=== PATIENT | male | born 1950 | race African-American/Black ===

== ENCOUNTER 2016-11-03 00:14 | Emergency (ER) | payer MEDICARE, OTHER ==
[~2016-11-03] VITALS: Ht 170.2 cm; Wt 97.5 kg
[~2016-11-03 00:14] MED LIST: BIMA2.5D EACHEYE; BUDE10.2 IH; CETI10TA22 PO; CRESTOR5 MG PO; DICL100G18 TP; FEBU40TA PO; FLUT16SP2 NS; FURO-68 PO; LOSA25TA4 PO; MONT10TA6 PO; TAMS0.4C97 PO; TIMO5DRO5 EACHEYE
--- NOTE | 2016-11-03 00:17 | PHYS DOC ---
Past Medical History Past Medical History: High Cholesterol, Hypertension Additional Past Medical Histor: gout Past Surgical History: Other Additional Past Surgical Histo: arthroscope rt knee Alcohol Use: None Drug Use: None Adult General Chief Complaint Chief Complaint: URINARY RETENTION HPI HPI Patient is a 66 year old -Malagasy male who presents with dysuria and frequency. He states his symptoms started approximately noon and sometimes is been having to urinate 5 or 6 times an hour. He also sees blood in his urine. He denies any fevers chills nausea or vomiting. He does have BPH he states he's had that for the last 15 or 20 years. He does see a urologist in [place] usually keeps office hours on Sunday. Review of Systems Review of Systems Constitutional: Denies fever or chills [] Eyes: Denies change in visual acuity, redness, or eye pain [] HENT: Denies nasal congestion or sore throat [] Respiratory: Denies cough or shortness of breath [] Cardiovascular: No additional information not addressed in HPI [] GI: Denies abdominal pain, nausea, vomiting, bloody stools or diarrhea [] : Positive for dysuria and hematuria. Musculoskeletal: Denies back pain or joint pain [] Integument: Denies rash or skin lesions [] Neurologic: Denies headache, focal weakness or sensory changes [] Endocrine: Denies polyuria or polydipsia [] Current Medications Current Medications Current Medications Medications (Trade) Dose Ordered Sig/Gus Start Time Stop Time Status Last Admin Dose Admin Ceftriaxone Sodium 50 ml @ 100 mls/hr 1X ONCE 11/03/16 03:15 11/03/16 03:44 Lidocaine HCl (Glydo (Lidocaine) Jelly) 1 pooja 1X ONCE 11/03/16 03:15 11/03/16 03:16 Allergies Allergies Allergies Coded Allergies Type Severity Reaction Last Updated Verified oxycodone Allergy Intermediate hives 08/22/13 Yes Physical Exam Physical Exam Constitutional: Well developed, well nourished, no acute distress, non-toxic appearance. [] HENT: Normocephalic, atraumatic, bilateral external ears normal, oropharynx moist, no oral exudates, nose normal. [] Eyes: PERRLA, EOMI, conjunctiva normal, no discharge. [] Neck: Normal range of motion, no tenderness, supple, no stridor. [] Cardiovascular:Heart rate regular rhythm, no murmur [] Lungs & Thorax: Bilateral breath sounds clear to auscultation [] Abdomen: Bowel sounds normal, soft, no tenderness, no masses, no pulsatile masses. [] Skin: Warm, dry, no erythema, no rash. [] Back: No tenderness, no CVA tenderness. [] Extremities: No tenderness, no cyanosis, no clubbing, ROM intact, no edema. [] Neurologic: Alert and oriented X 3, normal motor function, normal sensory function, no focal deficits noted. [] Psychologic: Affect normal, judgement normal, mood normal. [] Current Patient Data Vital Signs Vital Signs Date Time Temp Pulse Resp B/P (MAP) Pulse Ox O2 Delivery O2 Flow Rate FiO2 11/03/16 01:30 99.0 69 18 130/82 (98) 100 Room Air 99.0 Lab Values Laboratory Tests Test 11/03/16 01:25 11/03/16 02:00 Urine Collection Type Unknown Urine Color Yellow Urine Clarity Cloudy Urine pH 6.0 Urine Specific [place] 1.020 Urine Protein 100 mg/dL (NEG-TRACE) Urine Glucose (UA) Negative mg/dL (NEG) Urine Ketones (Stick) Negative mg/dL (NEG) Urine Blood Large (NEG) Urine Nitrite Negative (NEG) Urine Bilirubin Negative (NEG) Urine Urobilinogen Dipstick 1.0 mg/dL (0.2 mg/dL) Urine Leukocyte Esterase Moderate (NEG) Urine RBC Tntc /HPF (0-2) Urine WBC 11-20 /HPF (0-4) Urine Squamous Epithelial Cells Occ /LPF Urine Bacteria 0 /HPF (0-FEW) Urine Mucus Mod /LPF White Blood Count 6.3 x10^3/uL (4.0-11.0) Red Blood Count 4.07 x10^6/uL (4.30-5.70) L Hemoglobin 12.8 g/dL (13.0-17.5) L Hematocrit 37.6 % (39.0-53.0) L Mean Corpuscular Volume 92 fL (79-100) Mean Corpuscular Hemoglobin 31 pg (25-35) Mean Corpuscular Hemoglobin Concent 34 g/dL (31-37) Red Cell Distribution Width 12.8 % (11.5-14.5) Platelet Count 144 x10^3/uL (140-400) Neutrophils (%) (Auto) 44 % (31-73) Lymphocytes (%) (Auto) 42 % (24-48) Monocytes (%) (Auto) 12 % (0-9) H Eosinophils (%) (Auto) 2 % (0-3) Basophils (%) (Auto) 1 % (0-3) Neutrophils # (Auto) 2.8 x10^3uL (1.8-7.7) Lymphocytes # (Auto) 2.6 x10^3/uL (1.0-4.8) Monocytes # (Auto) 0.8 x10^3/uL (0.0-1.1) Eosinophils # (Auto) 0.1 x10^3/uL (0.0-0.7) Basophils # (Auto) 0.0 x10^3/uL (0.0-0.2) Sodium Level 139 mmol/L (136-145) Potassium Level 4.0 mmol/L (3.5-5.1) Chloride Level 105 mmol/L (98-107) Carbon Dioxide Level 28 mmol/L (21-32) Anion Gap 6 (6-14) Blood Urea Nitrogen 17 mg/dL (8-26) Creatinine 1.4 mg/dL (0.7-1.3) H Estimated GFR (Cockcroft-Gault) 61.2 Glucose Level 108 mg/dL (70-99) H Calcium Level 9.5 mg/dL (8.5-10.1) Total Bilirubin 0.4 mg/dL (0.2-1.0) Direct Bilirubin 0.1 mg/dL (0.0-0.2) Aspartate Amino Transferase (AST) 22 U/L (15-37) Alanine Aminotransferase (ALT) 27 U/L (16-63) Alkaline Phosphatase 66 U/L (46-116) Creatine Kinase 139 U/L (39-308) Creatine Kinase MB (Mass) 0.8 ng/mL (0.0-3.6) Creatine Kinase MB Relative Index 0.6 % (0-4) Total Protein 6.4 g/dL (6.4-8.2) Albumin 3.2 g/dL (3.4-5.0) L Lipase 176 U/L (73-393) Laboratory Tests 11/03/16 02:00 Laboratory Tests 11/03/16 02:00 EKG EKG [] Radiology/Procedures Radiology/Procedures [] Impressions: Urinary retention Hematuria Course & Med Decision Making Course & Med Decision Making Pertinent Labs and Imaging studies reviewed. (See chart for details) He has hematuria without any bacteriuria. Bladder scan is only shown around 80 ML's even though he urinated what he states is a lot and then repeat bladder scan showed again 80 fuentes. Mcdonald catheter was placed and the patient is being discharged home to follow-up with his urologist. Return precautions given. He is agreeable plan being discharged in stable condition he was given 1 g of Rocephin for leuk esterase positive urine.. Dragon Disclaimer Dragon Disclaimer This electronic medical record was generated, in whole or in part, using a voice recognition dictation system. Departure Departure Impression: Primary Impression: Urinary retention Disposition: HOME, SELF-CARE Condition: STABLE Referrals: ASIF JHA MD (PCP) Patient Instructions: Urinary Retention, Acute, Male Additional Instructions: You were seen for urinary frequency and I believe your bladder is not emptying itself completely. We placed a Mcdonald catheter in her bladder to help it drain. If you have any irritation take Fleming which is a narcotic pain medicines as instructed to for pain or discomfort. Please don't drive or taking this medicine or drink alcohol as it can impair judgment and make you sleepy. You will need to call your urologist in follow-up with him on Sunday. Your being discharged home. If you develop any fevers, confusion, abdominal pain, or other concerns please return back to emergency department for further evaluation and treatment. You can also follow up with her primary care physician. Scripts Hydrocodone/Apap 5-325 (NORCO 5-325 TABLET) 1 Each Tablet 1 TAB PO PRN Q6HRS Y for PAIN, #12 TAB 0 Refills Prov: MARY MEJIA MD 11/03/16 MARY MEJIA MD Nov 03, 2016 00:17
[2016-11-03 01:30] VITALS: BP 130/82
[2016-11-03 01:35] LABS: BILIRUBIN,URINE NEGATIVE (NEG); GLUCOSE,URINE NEGATIVE (NEG); NITRITE,URINE NEGATIVE (NEG); PROTEIN,URINE 100 mg/dL (NEG-TRACE)
[2016-11-03 01:43] LABS: BACTERIA,URINE 0 /HPF (0-FEW); RBC,URINE TNTC /HPF (0-2); SQUAMOUS EPITHELIAL CELL,UR OCC /LPF
[2016-11-03 02:19] LABS: BASO % 1 % (0-3); EOS % 2 % (0-3); HEMATOCRIT 37.6 % (39.0-53.0); HEMOGLOBIN 12.8 g/dL (13.0-17.5); LYMPH # 2.6 x10^3/uL (1.0-4.8); LYMPH % 42 % (24-48); MEAN CORPUSCULAR HEMOGLOBIN 31 pg (25-35); MEAN CORPUSCULAR HGB CONC 34 g/dL (31-37); MEAN CORPUSCULAR VOLUME 92 fL (79-100); MONO % 12 % (0-9); NEUT % 44 % (31-73); PLATELET COUNT 144 x10^3/uL (140-400); RED BLOOD COUNT 4.07 x10^6/uL (4.30-5.70); RED CELL DISTRIBUTION WIDTH 12.8 % (11.5-14.5); WHITE BLOOD COUNT 6.3 x10^3/uL (4.0-11.0)
[2016-11-03 02:30] LABS: CALCIUM 9.5 mg/dL (8.5-10.1); CREATININE 1.4 mg/dL (0.7-1.3); GFR 61.2
[2016-11-03 02:36] LABS: ALBUMIN 3.2 g/dL (3.4-5.0); DIRECT BILIRUBIN 0.1 mg/dL (0.0-0.2); TOTAL BILIRUBIN 0.4 mg/dL (0.2-1.0); TOTAL PROTEIN 6.4 g/dL (6.4-8.2)
[2016-11-03] MEDS ORDERED: LIDOCAINE 2% JELLY 6ML IN APPLICATOR. ONE (02:43)
[2016-11-03 02:48] LABS: CKMB MASS 0.8 ng/mL (0.0-3.6)
[2016-11-03] MEDS ORDERED: HYDR-971 PO (03:13)
[2016-11-03] MEDS ORDERED: LIDOCAINE 2% JELLY 6ML IN APPLICATOR. MM ONE (03:15)
== END 2016-11-03 03:45 | disposition home or self-care (01) ==
LOC: ER 00:14
DX: R33.9 Retention of urine, unspecified (principal); R31.9 Hematuria, unspecified; I10 Essential (primary) hypertension; E78.00 Pure hypercholesterolemia, unspecified; Z88.5 Allergy status to narcotic agent
CPT/HCPCS: 36415; 51702; 80048; 80076; 81001; 82553; 83690; 85025; 87086; 96365; 99285; J0690

== ENCOUNTER 2016-11-07 21:21 | Emergency (ER) | payer OTHER, MEDICARE ==
[~2016-11-07] VITALS: Ht 170.2 cm; Wt 97.5 kg
[~2016-11-07 21:21] MED LIST changes: +HYDR-971 PO
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
[2016-11-07] MEDS ORDERED: MORPHINE SULFATE 4 MG/ML DISP.SYRIN. IM ONE ×2 (22:30→23:45)
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
[2016-11-07] MEDS ORDERED: HYDR-971 PO (23:51)
[2016-11-08] MEDS ORDERED: HYDROcodone/APAP 7.5/325MG 1 TAB TABLET PO ONE
[2016-11-08 00:10] VITALS: BP 117/73
== END 2016-11-08 00:26 | disposition home or self-care (01) ==
LOC: ER 21:21
DX: S16.1XXA Strain of muscle, fascia and tendon at neck level, initial encounter (principal); S39.012A Strain of muscle, fascia and tendon of lower back, initial encounter; S29.012A Strain of muscle and tendon of back wall of thorax, initial encounter; M25.561 Pain in right knee; M25.571 Pain in right ankle and joints of right foot; J45.909 Unspecified asthma, uncomplicated; N40.0 Benign prostatic hyperplasia without lower urinary tract symptoms; E78.00 Pure hypercholesterolemia, unspecified; I12.9 Hypertensive chronic kidney disease with stage 1 through stage 4 chronic kidney disease, or unspecified chronic kidney disease; N18.9 Chronic kidney disease, unspecified; Z88.5 Allergy status to narcotic agent; V43.52XA Car driver injured in collision with other type car in traffic accident, initial encounter; Y93.89 Activity, other specified; Y99.8 Other external cause status; Y92.89 Other specified places as the place of occurrence of the external cause
CPT/HCPCS: 70450; 72125; 72128; 72131; 96372; 99284; J2270

== ENCOUNTER → 2016-11-15 | Outpatient (CLI) | payer MEDICARE ==
[2016-11-08 00:10] VITALS: BP 117/73
[~2016-11-15] MED LIST changes: +CONTRAST GIVEN MC PRN; +IOHEXOL 300 MG/ML 75 ML VIAL IV ONE; +IOHEXOL 300 MG/ML 75 ML VIAL ONE
--- NOTE | 2016-11-15 10:57 | RAD ---
Indication hematuria. CT urogram was performed. Initially noncontrast images were obtained through the abdomen and pelvis. This was followed by portal venous phase imaging through the kidneys and finally delayed images through the abdomen and pelvis. Approximately 75 cc of Omnipaque 300 was administered. No prior imaging of the abdomen or pelvis is available On the initial noncontrast images note is made of a horseshoe configuration of the kidneys. There is a 7 to 8 mm calculus in the left renal pelvis. Additional calculi are seen involving the left kidney the largest measuring approximately 3 mm. There is very minimal prominence of the left renal pelvis. Certainly marked hydronephrosis is not seen. There is no hydroureter. There are bladder calculi, 2, the largest measuring approximately 13 mm. The lung bases are clear. There is a small periumbilical hernia appearing uncomplicated.. It contains only fat. The liver and spleen appear unremarkable. The gallbladder is largely contracted but grossly normal. No pancreatic abnormality is seen. The adrenal glands appear normal. Acute finding in the abdomen is not seen. No acute finding is seen in the pelvis. Mild diverticulosis is noted associated with the large bowel. There are degenerative changes in the lumbar spine predominantly centered at L4-5. IMPRESSION: No acute finding seen in the abdomen or pelvis. Horseshoe configuration of the kidneys. 7 to 8 mm calculus in the left renal pelvis. Additional left renal calculi are noted. Bladder calculi. PQRS Compliance Statement: One or more of the following individualized dose reduction techniques were utilized for this examination: 1. Automated exposure control 2. Adjustment of the mA and/or kV according to patient size 3. Use of iterative reconstruction technique
== END | disposition home or self-care (01) ==
LOC: CT 08:45
PROVIDERS: ATTEND Urology
DX: N20.0 Calculus of kidney (principal); N21.0 Calculus in bladder; I12.9 Hypertensive chronic kidney disease with stage 1 through stage 4 chronic kidney disease, or unspecified chronic kidney disease; N18.9 Chronic kidney disease, unspecified; Z87.891 Personal history of nicotine dependence
CPT/HCPCS: 74178; Q9967

== ENCOUNTER 2016-12-08 20:53 | Emergency (ER) | payer MEDICARE ==
[~2016-12-08] VITALS: Ht 170.2 cm; Wt 94.8 kg
[~2016-12-08 20:53] MED LIST changes: -CONTRAST GIVEN MC PRN; -IOHEXOL 300 MG/ML 75 ML VIAL IV ONE; -IOHEXOL 300 MG/ML 75 ML VIAL ONE
[2016-12-08 22:23] LABS: BILIRUBIN,URINE NEGATIVE (NEG); GLUCOSE,URINE NEGATIVE (NEG); NITRITE,URINE NEGATIVE (NEG); PROTEIN,URINE 100 mg/dL (NEG-TRACE); UROBILINOGEN,URINE 0.2 mg/dL (0.2 mg/dL)
[2016-12-08 22:29] LABS: BACTERIA,URINE 0 /HPF (0-FEW); RBC,URINE >40 /HPF (0-2)
--- NOTE | 2016-12-08 23:01 | PHYS DOC ---
Past Medical History Past Medical History: Asthma, High Cholesterol, Hypertension, Other Additional Past Medical Histor: RENAL INSUFFICIENCY; ENLARGED PROSTATE Past Surgical History: Other Additional Past Surgical Histo: arthroscope rt knee Alcohol Use: Occasionally Drug Use: None Adult General Chief Complaint Chief Complaint: URINE CATHETER PROBLEM HPI HPI Patient is a 66 year old male who presents with banuelos catheter problem. The patient states he underwent surgery for "gallstones & kidney stones" by Dr. Carias at [facility] on 12/04. Today he states he is urinating around his banuelos catheter with decreased output to the catheter, & has suprapubic discomfort. Denies fevers/chills, nausea, vomiting, diarrhea, constipation, hematuria, flank pain. Has follow up appointment in 4 days. Review of Systems Review of Systems Constitutional: Denies fever or chills HENT: Denies nasal congestion or sore throat Respiratory: Denies cough or shortness of breath Cardiovascular: Denies chest pain or edema GI: Denies abdominal pain, nausea, vomiting, or diarrhea : Reports banuelos catheter problem Musculoskeletal: Denies back pain or joint pain Integument: Denies rash Neurologic: Denies headache Allergies Allergies Allergies Coded Allergies Type Severity Reaction Last Updated Verified oxycodone Allergy Intermediate hives 08/22/13 Yes Physical Exam Physical Exam Constitutional: obese, no acute distress, non-toxic appearance. HENT: Normocephalic, atraumatic, bilateral external ears normal, oropharynx moist, nose normal. Eyes: conjunctiva normal, no discharge. Neck: supple, no stridor. Cardiovascular: RRR, no murmurs, no edema. Lungs & Thorax: LCTAB, no wheezing, no respiratory distress. Abdomen: soft, nontender, nondistended. no rebound/guarding, no masses or pulsatile masses. no abdominal incisions or bandages. : banuelos catheter in place with minimal dark yellow output. Skin: Warm, dry, no erythema, no rash. Back: No CVA tenderness. Extremities: No tenderness, no edema. Neurologic: Alert and oriented X 3, no focal deficits noted. Psychologic: Affect normal, judgement normal, mood normal. Current Patient Data Vital Signs Vital Signs Date Time Temp Pulse Resp B/P (MAP) Pulse Ox O2 Delivery O2 Flow Rate FiO2 12/08/16 21:01 98.3 91 24 184/106 (132) 99 Room Air 98.3 Lab Values Laboratory Tests Test 12/08/16 22:15 Urine Collection Type Unknown Urine Color Yellow Urine Clarity Clear Urine pH 7.0 Urine Specific [place] 1.010 Urine Protein 100 mg/dL (NEG-TRACE) Urine Glucose (UA) Negative mg/dL (NEG) Urine Ketones (Stick) Negative mg/dL (NEG) Urine Blood Large (NEG) Urine Nitrite Negative (NEG) Urine Bilirubin Negative (NEG) Urine Urobilinogen Dipstick 0.2 mg/dL (0.2 mg/dL) Urine Leukocyte Esterase Large (NEG) Urine RBC >40 /HPF (0-2) Urine WBC 5-10 /HPF (0-4) Urine Bacteria 0 /HPF (0-FEW) EKG EKG [] Radiology/Procedures Radiology/Procedures [] Course & Med Decision Making Course & Med Decision Making Pertinent Labs and Imaging studies reviewed. (See chart for details) The patient presents with banuelos catheter problem. His surgery was probably just for he requested to have it removed. RN removed catheter & he was able to spontaneously void >450 mL of yellow urine. Bladder scan showed no postvoid residual. UA shows blood. Contacted his urologist Dr. Carias who advises no need to replace catheter. patient instructed to follow postop instructions including continue antibiotics. Follow up as scheduled in the clinic with Dr. Carias. Come back for high fever, severe pain, uncontrolled vomiting, inability to urinate, any otherwise worsening condition. Discharged home in stable condition. [] Dragon Disclaimer Dragon Disclaimer This electronic medical record was generated, in whole or in part, using a voice recognition dictation system. Departure Departure Impression: Primary Impression: Banuelos catheter problem Disposition: 01 HOME, SELF-CARE Condition: STABLE Referrals: ASIF JHA MD (PCP) Patient Instructions: Urinary Retention, Acute, Male, [id number] Additional Instructions: You were seen in the emergency department today for problems with your Banuelos catheter. It was removed here & you were able to urinate. Please continue all follow-up instructions from your surgeon. Keep follow-up appointment this week with Dr. Carias in the urology clinic. Return the emergency department for high fever, severe pain, uncontrolled vomiting, inability to urinate, any otherwise worsening condition. JUAN MANNING MD Dec 08, 2016 23:01
[2016-12-08 23:30] VITALS: BP 142/75
== END 2016-12-08 23:35 | disposition home or self-care (01) ==
LOC: ER 20:53
DX: T83.098A Other mechanical complication of other urinary catheter, initial encounter (principal); E78.00 Pure hypercholesterolemia, unspecified; J45.909 Unspecified asthma, uncomplicated; I10 Essential (primary) hypertension; N40.0 Benign prostatic hyperplasia without lower urinary tract symptoms; Z87.442 Personal history of urinary calculi; Z88.5 Allergy status to narcotic agent; Y84.6 Urinary catheterization as the cause of abnormal reaction of the patient, or of later complication, without mention of misadventure at the time of the procedure; Y92.89 Other specified places as the place of occurrence of the external cause
CPT/HCPCS: 81001; 87086; 99284

== ENCOUNTER → 2016-12-11 | Outpatient (CLI) | payer MEDICARE ==
[2016-12-08 23:30] VITALS: BP 142/75
--- NOTE | 2016-12-11 11:50 | KCIC ---
CT Abdomen and Pelvis without contrast History: Left renal stone, stent removal with stent placement one week ago Technique: Noncontrast CT imaging was performed of the abdomen and pelvis. Multiplanar images are reviewed. Exposure: One or more of the following individualized dose reduction techniques were utilized for this examination: 1. Automated exposure control 2. Adjustment of the mA and/or kV according to patient size 3. Use of iterative reconstruction technique. 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 There is left ureteral stent which appears adequately positioned. There is a small 0.4 cm calculus near the stent posteriorly of the calyceal margin, approximately 7 other calculi near the margin on the left, the largest 0.7 cm. No calculus is seen adjacent to the ureteral course of the stent. No right ureteral calculus is identified. There is mild stranding change about the left ureter. There is no significant hydronephrosis. Accurate evaluation of abdominal visceral organs is limited without intravenous contrast. Liver is small. There is no obvious focal abnormality of the spleen or pancreas. Gallbladder is present without obvious intraluminal abnormality. There is no adrenal nodularity. Accurate evaluation of bowel is limited without oral contrast. There is moderate to severe diverticulosis throughout most of the colon greatest of the descending and proximal to mid sigmoid colon without evidence of diverticulitis. Normal appendix is visualized. There is fat-containing umbilical hernia, no bowel, neck on the order of 2.4 cm transverse. There is multilevel fairly advanced degenerative disc disease lumbar spine greatest L4-5 and L5-S1, grade 1 anterior spondylolisthesis L4-5 and L5-S1. There is moderate to severe narrowing of the right L4-5 neural foramen, to lesser degree on the left. There is also probable moderate narrowing of the right L5-S1 neural foramen. There is multilevel lumbar facet degenerative change. Prostate gland slightly indents the base of urinary bladder. Impression: 1. 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 There is a left ureteral stent which appears adequately positioned, calculi of the left moiety of the horseshoe kidney. 2. There is colonic diverticulosis without evidence of diverticulitis. 3. There is fat-containing umbilical hernia. 4. Liver is small. Electronically signed by: Dino Saleh MD (12/11/2016 11:47 AM) [facility]
== END | disposition home or self-care (01) ==
LOC: KCIC CT 10:40
PROVIDERS: ATTEND Urology
DX: N20.2 Calculus of kidney with calculus of ureter (principal); K57.30 Diverticulosis of large intestine without perforation or abscess without bleeding; K42.9 Umbilical hernia without obstruction or gangrene; M51.37 Other intervertebral disc degeneration, lumbosacral region; Z87.442 Personal history of urinary calculi
CPT/HCPCS: 74176

== ENCOUNTER → 2020-04-14 | Outpatient (CLI) | payer MEDICARE ==
[2018-02-17 12:17] VITALS: BP 143/70
[~2020-04-14] MED LIST changes: +ATOR20TA58 PO; -CETI10TA22 PO; +CETI10TA74 PO; -DICL100G18 TP; +DICL100G54 TP; +HYDR-3164 PO; -HYDR-971 PO; +LOSA-73 PO; -LOSA25TA4 PO; +LOSA25TA54 PO; +MONT10TA49 PO; -MONT10TA6 PO; +TIMO10DR5 EACHEYE; +ZOLPIDEM 5 MG TABLET. PO ONE
--- NOTE | 2020-04-15 09:15 | SLEEP ---
DATE OF STUDY: 04/14/2020 SLEEP STUDY ATTENDING PHYSICIAN: Trent Stevenson MD REFERRING PHYSICIAN: Dr. Edinson Amanda. The patient is a 69-year-old who weighs 210 pounds with a BMI of 36. The patient's [place] score was 10. The patient underwent split night study performed at [facility]. During the night study, the patient spent 407 minutes in bed and slept for 338 minutes with a sleep efficiency of 83%. Sleep latency was 46 minutes with a REM latency of 78 minutes. Sleep architecture showed normal stage 1 and stage 2 sleep and absent slow wave sleep and increased REM sleep, which was 34% of the total sleep time. During the initial diagnostic portion of the study, the patient slept for 81 minutes. During that time, the patient had 35 hypopneas. One obstructive apnea, no mixed or central apneas. The patient's AHI was 27 per hour with a supine AHI of 32 per hour and a REM AHI of 69 per hour. EKG monitoring revealed an average heart rate of 67 beats per minute, no sustained arrhythmias observed. Nocturnal oximetry study revealed an average oxygen saturation of 96% with the lowest of 71%. 3% of time oxygen saturation remained between 80% and 89%. PLMS were seen at index of 16 per hour, but only 1 per hour caused EEG arousals. The patient met the criteria for CPAP initiation. It was started at 5 cm water and titrated up to 9 cm water. At the final pressure, the patient slept for 216 minutes. The patient is supine as well as REM sleep. The patient's AHI was reduced to 3 per hour and oxygen saturation remained above 93%. The patient used medium size nasal pillows. IMPRESSION: 1. Moderate obstructive sleep apnea with worsening during REM and supine sleep; total AHI of 27 per hour, supine AHI 32 per hour and a REM AHI of 69 per hour. 2. No clinically significant nocturnal hypoxia. 3. Mild PLMS. RECOMMENDATIONS: 1. CPAP at 9 cm water completely eliminated the patient's sleep apnea and should be used on a nightly basis. 2. Follow up in 4-6 weeks to assess compliance with CPAP and to document clinical improvement. 3. Weight loss is advised. 4. Avoid PATHOLOGICAL TECHNICIAN depressants. 5. Cautioned regarding driving until symptoms of sleep apnea resolve with the use of CPAP. 6. The patient used medium size nasal pillows. EDU FERRARI MD DR: ANNY/eleazar JOB#: [id number] / [id number]
== END ==
LOC: SLPLAB 19:11
PROVIDERS: ATTEND Internal Medicine Critical Care Medicine
DX: G47.33 Obstructive sleep apnea (adult) (pediatric) (principal)
CPT/HCPCS: 95810

== ENCOUNTER → 2020-04-19 | Outpatient (CLI) | payer MEDICARE ==
[2018-02-17 12:17] VITALS: BP 143/70
[~2020-04-19] MED LIST changes: -ZOLPIDEM 5 MG TABLET. PO ONE
--- NOTE | 2020-04-19 16:32 | CARD ---
MR#: [id number] Date of Study: 04/19/2020 Ordering Physician: EDU FERRARI, Referring Physician: EDU FERRARI, Tech: Ya Cartagena JOSE MANUEL APPROVED REPORT EXAM: Two-dimensional and M-mode echocardiogram with Doppler and color Doppler. Other Information Quality : Good INDICATION Dyspnea RISK FACTORS Obesity 2D DIMENSIONS RVDd3.0 (2.9-3.5cm)Left Atrium(2D)3.6 (1.6-4.0cm) IVSd0.8 (0.7-1.1cm)Aortic Root(2D)2.6 (2.0-3.7cm) LVDd3.6 (3.9-5.9cm)LVOT Diameter2.0 (1.8-2.4cm) PWd0.8 (0.7-1.1cm)LVDs2.7 (2.5-4.0cm) FS (%) 25.0 %SV43.1 ml LVEF(%)55.0 (>50%) Aortic Valve AoV Peak [place].101.4cm/sAoV VTI17.4cm AO Peak GR.4.1mmHgLVOT Peak [place].92.6cm/s LVOT VTI 15.94cmAO Mean GR.2mmHg MINA (VMAX)2.53zv6UYI (VTI)2.95cm2 Mitral Valve MV E Guzyjhuw00.1cm/sMV DECEL PIED786nn MV A Vyxcxnfr51.7cm/sMV FUT670fn E/A Ratio0.5MVA (PHT)1.99cm2 TDI E/Lateral E'7.9E/Medial E'7.6 Tricuspid Valve TR P. Qtgqjard953cb/sRAP ETPIDZVQ0qhSn TR Peak Gr.24atWqTFQP22ccDg Pulmonary Vein S1 Jtssrgaj78.4cm/sD2 Sywbgtyg53.4cm/s LEFT VENTRICLE The left ventricle is normal size. There is normal left ventricular wall thickness. The Ejection Frac tion is 55-60%. The left ventricular systolic function is normal and the ejection fraction is within normal range. There is normal LV segmental wall motion. Transmitral Doppler flow pattern is Grade I-a bnormal relaxation pattern. RIGHT VENTRICLE The right ventricle is normal size. The right ventricular systolic function is normal. ATRIA The left atrium size is normal. The right atrium size is normal. The interatrial septum is intact wit h no evidence for an atrial septal defect or patent foramen ovale as noted on 2-D or Doppler imaging. AORTIC VALVE The aortic valve is calcified but opens well. Doppler and Color Flow revealed no significant aortic r egurgitation. There is no significant aortic valvular stenosis. MITRAL VALVE The mitral valve is calcified but opens well. There is no evidence of mitral valve prolapse. There is no mitral valve stenosis. Doppler and Color-flow revealed trace mitral regurgitation. TRICUSPID VALVE The tricuspid valve is normal in structure and function. Doppler and Color Flow revealed trace tricus pid regurgitation. The PA pressure was estimated at 25 mmHg. There is no tricuspid valve stenosis. PULMONIC VALVE The pulmonary valve is normal in structure and function. Doppler and Color Flow revealed no pulmonic valvular regurgitation. There is no pulmonic valvular stenosis. GREAT VESSELS The aortic root is normal in size. The ascending aorta is normal in size. The IVC was not visualized. PERICARDIAL EFFUSION There is no evidence of significant pericardial effusion. Critical Notification Critical Value: No <Conclusion> The left ventricle is normal size. The Ejection Fraction is 55-60%. The left ventricular systolic function is normal and the ejection fraction is within normal range. There is normal left ventricular wall thickness. Doppler and Color Flow revealed no significant aortic regurgitation. There is no significant aortic valvular stenosis. Doppler and Color-flow revealed trace mitral regurgitation. Doppler and Color Flow revealed trace tricuspid regurgitation. The PA pressure was estimated at 25 mmHg. Signed by : Eze Stone MD Electronically Approved : 04/19/2020 16:31:35
== END ==
LOC: ECHO 09:44
PROVIDERS: ATTEND Internal Medicine Critical Care Medicine
DX: I08.0 Rheumatic disorders of both mitral and aortic valves (principal)
CPT/HCPCS: 93306

== ENCOUNTER 2020-04-25 14:43 | Emergency (ER) | payer MEDICARE ==
[~2020-04-25] VITALS: Ht 170.2 cm; Wt 97.2 kg
[2020-04-25] MEDS ORDERED: ONDANSETRON PF 4 MG/2 ML VIAL. IVP ONE (15:30)
[2020-04-25] MEDS ORDERED: IV NORMAL SALINE 1000ML BAG 1,000 ML IV ONE (15:30)
--- NOTE | 2020-04-25 15:46 | ED.ADGEN ---
Past Medical History Past Medical History: Asthma, High Cholesterol, Hypertension, Renal Disease, Other Additional Past Medical Histor: RENAL INSUFFICIENCY; ENLARGED PROSTATE; gout Past Surgical History: Other Additional Past Surgical Histo: arthroscope rt knee; prostate; kidney stone Smoking Status: Former Smoker Alcohol Use: Occasionally Drug Use: None General Adult EDM: Chief Complaint: SHORTNESS OF BREATH HPI: HPI: Patient is a 69 year old male coming in for 2 days of worsening dyspnea, cough that is occasionally productive, vomiting and diarrhea. Has had small bits of blood when he wiped from his stools. Diffuse generalized abdominal pain. Has had some body aches and chills, has not checked his temperature but does not feel febrile. Patient has a history of baseline dyspnea secondary to COPD but says is worse now. Takes trilogy and says he has been compliant with that medication as well as his blood pressure medications except for today. Got his flu vaccine this year, has not been diagnosed with Covid or receive the vaccine. No known sick contacts. Denies any changes in urinary frequency or color. Review of Systems: Review of Systems: All other systems within normal limits except for as noted in the HPI Current Medications: Current Medications Medications (Trade) Dose Ordered Sig/Gus Start Time Stop Time Status Last Admin Dose Admin Ondansetron HCl (Zofran) 4 mg 1X ONCE 04/25/20 15:30 04/25/20 15:31 DC 04/25/20 15:43 4 MG Sodium Chloride 1,000 ml @ 1,000 mls/hr 1X ONCE 04/25/20 15:30 04/25/20 16:29 DC 04/25/20 15:43 1,000 MLS/HR Allergies: Allergies: Allergies Coded Allergies Type Severity Reaction Last Updated Verified oxycodone Allergy Intermediate hives 08/22/13 Yes Physical Exam: PE: Constitutional: Well developed, well nourished, no acute distress, non-toxic appearance. [] HENT: Normocephalic, atraumatic, bilateral external ears normal, nose normal. [] Eyes: PERRLA, conjunctiva normal, no discharge. [] Neck: No rigidity, supple, no stridor. [] Cardiovascular: Tachycardic, regular rhythm, brisk cap refill [] Lungs & Thorax: Non labored symmetric respirations, no tachypnea or respiratory distress [] Abdomen: Soft, nondistended, generalized tenderness without guarding or rebound Skin: Warm, dry, no erythema, no rash. [] Back: Unremarkable Extremities: No deformities, range of motion grossly intact, no lower extremity edema [] Neurologic: Alert and oriented X 3, no focal deficits noted. [] Psychologic: Affect normal, judgement normal, mood normal. [] Constitutional: Well developed, well nourished, no acute distress, non-toxic appearance HENT: Normocephalic, atraumatic Eyes: Conjunctiva normal, no discharge Neck: Normal range of motion, supple Lungs & Thorax: No respiratory distress, equal chest rise and fall Abdomen: Soft, no tenderness, no guarding/rebound tenderness Skin: Warm, dry, no erythema, no rash Back: No tenderness, no CVA tenderness Extremities: No tenderness, ROM intact, no edema Neurologic: Alert and oriented X 3, no focal deficits noted Psychologic: Affect normal, judgment normal Current Patient Data: Labs: Laboratory Tests Test 04/25/20 15:25 04/25/20 16:51 White Blood Count 6.4 x10^3/uL (4.0-11.0) Red Blood Count 4.99 x10^6/uL (4.30-5.70) Hemoglobin 15.5 g/dL (13.0-17.5) Hematocrit 45.9 % (39.0-53.0) Mean Corpuscular Volume 92 fL (79-100) Mean Corpuscular Hemoglobin 31 pg (25-35) Mean Corpuscular Hemoglobin Concent 34 g/dL (31-37) Red Cell Distribution Width 12.9 % (11.5-14.5) Platelet Count 164 x10^3/uL (140-400) Neutrophils (%) (Auto) 78 % (31-73) H Lymphocytes (%) (Auto) 14 % (24-48) L Monocytes (%) (Auto) 8 % (0-9) Eosinophils (%) (Auto) 0 % (0-3) Basophils (%) (Auto) 0 % (0-3) Neutrophils # (Auto) 4.9 x10^3/uL (1.8-7.7) Lymphocytes # (Auto) 0.9 x10^3/uL (1.0-4.8) L Monocytes # (Auto) 0.5 x10^3/uL (0.0-1.1) Eosinophils # (Auto) 0.0 x10^3/uL (0.0-0.7) Basophils # (Auto) 0.0 x10^3/uL (0.0-0.2) Sodium Level 143 mmol/L (136-145) Potassium Level 3.9 mmol/L (3.5-5.1) Chloride Level 105 mmol/L (98-107) Carbon Dioxide Level 25 mmol/L (21-32) Anion Gap 13 (6-14) Blood Urea Nitrogen 20 mg/dL (8-26) Creatinine 1.7 mg/dL (0.7-1.3) H Estimated GFR (Cockcroft-Gault) 48.5 BUN/Creatinine Ratio 12 (6-20) Glucose Level 176 mg/dL (70-99) H Lactic Acid Level 2.3 mmol/L (0.4-2.0) H Calcium Level 9.6 mg/dL (8.5-10.1) Total Bilirubin 1.0 mg/dL (0.2-1.0) Aspartate Amino Transferase (AST) 19 U/L (15-37) Alanine Aminotransferase (ALT) 33 U/L (16-63) Alkaline Phosphatase 80 U/L (46-116) Troponin I Quantitative < 0.017 ng/mL (0.000-0.055) MX-Uyb-U-Type Natriuretic Peptide 129 pg/mL (0-124) H Total Protein 7.1 g/dL (6.4-8.2) Albumin 3.9 g/dL (3.4-5.0) Albumin/Globulin Ratio 1.2 (1.0-1.7) Lipase 96 U/L (73-393) Urine Collection Type Unknown Urine Color Yellow Urine Clarity Clear Urine pH 6.0 (<5.0-8.0) Urine Specific [place] 1.025 (1.000-1.030) Urine Protein 100 mg/dL (NEG-TRACE) Urine Glucose (UA) Negative mg/dL (NEG) Urine Ketones (Stick) Negative mg/dL (NEG) Urine Blood Negative (NEG) Urine Nitrite Negative (NEG) Urine Bilirubin Negative (NEG) Urine Urobilinogen Dipstick 1.0 mg/dL (0.2 mg/dL) Urine Leukocyte Esterase Negative (NEG) Urine RBC 1-2 /HPF (0-2) Urine WBC 1-4 /HPF (0-4) Urine Squamous Epithelial Cells Few /LPF Urine Bacteria 0 /HPF (0-FEW) Laboratory Tests 04/25/20 15:25 Laboratory Tests 04/25/20 15:25 Vital Signs: Vital Signs Date Time Temp Pulse Resp B/P (MAP) Pulse Ox O2 Delivery O2 Flow Rate FiO2 04/25/20 18:00 98.4 88 24 139/73 (95) 100 Room Air 98.4 EKG: EKG: Sinus tachycardia, heart rate 101, normal axis, no ST elevation or depression, nonspecific T wave changes, no ectopy, normal intervals [] Radiology/Procedures: Radiology/Procedures: CXR INDICATION: Reason: dyspnea / Spl. Instructions: / History: COMPARISON: February 2018 FINDINGS: Single view of chest obtained. Hypoexpanded examination of the lungs. Tortuous aortic contour with prominent aortic knob again seen. No definite new region of consolidation. IMPRESSION: * Hypoexpanded exam without definite focal consolidation. * Tortuous prominent aortic contour. PROCEDURE: CT ABDOMEN PELVIS WO CONTRAST Abdominal and Pelvis CT, Without Contrast: History: Reason: blood in stools, gen abd pain / Spl. Instructions: / History: Comparison: None. Procedure: Axial images are obtained of the abdomen and pelvis, without IV or oral contrast. Oral Contrast: No Findings: Evaluation of solid organs is limited without contrast. The stomach is distended with air and fluid. The colon is collapsed limiting its evaluation. There is diffuse colonic diverticulosis. The appendix is normal. The gallbladder appears normal. Liver: Normal. Spleen: Normal. Pancreas: Normal. Adrenal Glands: Normal. Kidneys: There is a horseshoe kidney with a few tiny nonobstructive stones in the renal pelvis and there is a 6 mm stone in the proximal left ureter however there is no hydronephrosis seen. There is no free air or free fluid. There is no lymphadenopathy. The urinary bladder appears normal. There is no pericolonic inflammation identified. Impression: 1. 6 mm stone proximal left ureter without hydronephrosis. 2. 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 3. Distention of the stomach with air and fluid. End impression PQRS Compliance Statement: One or more of the following individualized dose reduction techniques were utilized for this examination: 1. Automated exposure control 2. Adjustment of the mA and/or kV according to patient size 3. Use of iterative reconstruction technique Electronically signed by: Paramjit Donnelly III, MD (04/25/2020 6:41 PM) [facility] Course & Med Decision Making: Course & Med Decision Making Pending CT at shift change. Patient given fluids for dehydration. Care transition to Dr. Davis 0600- Sign out received from Dr. Colindres for patient with history of left sided abdominal pain and N/V and generalized malaise. Some concern for COVID-19. COVID testing pending. Labs reviewed. UA without signs of infection. LFTs/lipase WNL. Lactic acid elevated. No significant source of infection noted on UA or CXR. WBC WNL. Creatinine slightly elevated from prior per [employer] review. IVF hydration given. Patient pending CT results. Patient seen and evaluated by myself. CT with findings of 6mm proximal left ureteral calculi without signs of hydronephrosis. Flomax provided. Patient stable for discharge with outpatient follow-up with PCP/urologist. Patient to follow with his urologist. A copy of CT results provided for patient to provide to urologist. Discussed findings and plan with patient, who acknowledges understanding and agreement. COVID-19 CRITERIA: The patient was evaluated during the global COVID-19 pandemic, and that diagnosis was suspected/considered upon their initial presentation. Their evaluation, treatment and testing was consistent with current guidelines for patients who present with complaints or symptoms that may be related to COVID-19. Avelina Disclaimer: Avelina Disclaimer: This electronic medical record was generated, in whole or in part, using a voice recognition dictation system. Departure Departure Impression: Primary Impression: Kidney stone on left side Additional Impressions: Suspected 2019 novel coronavirus infection Lactic acidosis Acute on chronic renal insufficiency Disposition: 01 DC HOME SELF CARE/HOMELESS Condition: STABLE Referrals: ASIF JHA MD (PCP) Patient Instructions: Chronic Renal Insufficiency, Diet for Kidney Stones, Kidney Stones, Otsf-wh-Zibe, Lactic Acid, Lactate Additional Instructions: You have been tested for or diagnosed with COVID-19. It is an infection caused by a new type of coronavirus. COVID-19 will cause cold-like or mild flu symptoms in most. It can cause more severe symptoms like problems breathing in some. There is no treatment for COVID-19. The body will clear the infection over time. Self-care will help to ease discomfort. Steps to Take: Self-Care Rest as needed. Healthy habits may help you feel better. Steps include: Choose healthy foods including fruits and vegetables. Drink water throughout the day. Get plenty of sleep each night. If you smoke, try to quit. It may ease breathing. Avoid alcohol. Keep Others Healthy The virus can spread to others. Droplets are released every time you sneeze or cough. The droplets can get into the mouth, nose, or eyes of people near you and lead to infection. To lower the chances of spreading COVID-19 to others: Stay at home until your doctor has said it is safe to leave. If you tested positive this will mean staying isolated until both of the following are true: At least 7 days have passed since the start of illness. You are free of fever for at least 72 hours without the use of medicine. During this time: - Avoid public areas, events, or transportation. Do not return to work or gus ool until your doctor has said it is safe to do so. - Call ahead if you need to go to a medical center. Let them know you may have COVID-19. It will help them guide you where to go. They may also ask you to wear a facemask when you come to the office. - If you call for emergency medical services, let them know you may have COVID- 19. While at home: - Try to avoid close contact with others. Stay about 6 feet away. - If possible, spend most of your time in a separate room from others. - Use a face mask if you will be in close contact with others such as sharing a room or vehicle. - Have someone wipe down common surfaces in the home. Use household sieve grader tender every day on areas like doorknobs, counters, or sinks. - Cough or sneeze into a tissue. Throw the tissue away right after use. If a tissue is not available, cough or sneeze into your elbow. - Wash your hands often. Wash them after sneezing or coughing. Use soap and water and wash for at least 20 seconds. Alcohol based hand filter cleaner can be used if soap and water is not available. - Do not prepare food for others. Avoid sharing personal items like forks, spoons, or toothbrushes. - Avoid close contact with pets while you are sick. There is no evidence of the virus passing to pets. This is a safety step until more is known about this virus. Isolation can be frustrating. Social interaction can help. Keep in touch with friends and family through phone and tech options. You can still interact with others in your home, just keep a safe distance of about 6 feet. Follow-up: Your doctors office will check in with you to see if there are any changes in your health. You may be asked to keep track of symptoms to share with them. They will also let you know when you are clear to be in public again. Problems to Look Out For: Contact your doctor if your recovery is not going as you expect. Get emergency care if you have problems such as: - Trouble breathing - Nonstop chest pain or pressure - Changes in awareness, confusion, or problems waking - Lips or face have bluish color - Worsening of symptoms If you think you have an emergency, call for emergency medical services right away. As taken from [facility] Tamsulosin Hcl (FLOMAX) 0.4 Mg Cap.er.24h 1 CAP PO DAILY for 10 Days, #10 CAP Prov: ALONDRA DAVIS DO 04/25/20 Ondansetron (ONDANSETRON ODT) 4 Mg Tab.rapdis 1 TAB PO PRN Q6-8HRS PRN for NAUSEA, #16 TAB Prov: ALONDRA DAVIS DO 04/25/20 Hydrocodone Bit/Acetaminophen (HYDROCODONE-APAP 5-325 ) 1 Tab Tablet 0.5-1 TAB PO PRN Q6HRS PRN for PAIN, #14 TAB 0 Refills Prov: ALONDRA DAVIS DO 04/25/20 COVID-19 Assessment: COVID-19 Patient Risks: Age 65 or older: No Sign of co-morbidity: No Exp to person + for COVID: No Exp to PUI: No Travel from affected area: No Lower respiratory symptoms: Yes Fever: No Other: Yes PPE Use: Full PPE with N95 mask or PAPR: Yes Problem Qualifiers CARROL COLINDRES MD Apr 25, 2020 15:46 ALONDRA DAVIS DO Apr 25, 2020 19:39
[2020-04-25 15:49] LABS: BASO % 0 % (0-3); EOS % 0 % (0-3); HEMATOCRIT 45.9 % (39.0-53.0); HEMOGLOBIN 15.5 g/dL (13.0-17.5); LYMPH # 0.9 x10^3/uL (1.0-4.8); LYMPH % 14 % (24-48); MEAN CORPUSCULAR HEMOGLOBIN 31 pg (25-35); MEAN CORPUSCULAR HGB CONC 34 g/dL (31-37); MEAN CORPUSCULAR VOLUME 92 fL (79-100); MONO # 0.5 x10^3/uL (0.0-1.1); MONO % 8 % (0-9); NEUT # 4.9 x10^3/uL (1.8-7.7); NEUT % 78 % (31-73); PLATELET COUNT 164 x10^3/uL (140-400); RED BLOOD COUNT 4.99 x10^6/uL (4.30-5.70); RED CELL DISTRIBUTION WIDTH 12.9 % (11.5-14.5); WHITE BLOOD COUNT 6.4 x10^3/uL (4.0-11.0)
[2020-04-25 16:06] LABS: CALCIUM 9.6 mg/dL (8.5-10.1); CREATININE 1.7 mg/dL (0.7-1.3); GFR 48.5; POTASSIUM 3.9 mmol/L (3.5-5.1)
[2020-04-25 16:12] LABS: ALBUMIN 3.9 g/dL (3.4-5.0); ALBUMIN/GLOBULIN RATIO 1.2 (1.0-1.7); TOTAL PROTEIN 7.1 g/dL (6.4-8.2)
--- NOTE | 2020-04-25 16:57 | RAD ---
INDICATION: Reason: dyspnea / Spl. Instructions: / History: COMPARISON: February 2018 FINDINGS: Single view of chest obtained. Hypoexpanded examination of the lungs. Tortuous aortic contour with prominent aortic knob again seen. No definite new region of consolidation. IMPRESSION: * Hypoexpanded exam without definite focal consolidation. * Tortuous prominent aortic contour. Electronically signed by: David Lawrence MD (04/25/2020 4:55 PM) [id number]
[2020-04-25 17:25] LABS: BILIRUBIN,URINE NEGATIVE (NEG); CLARITY,URINE CLEAR; COLOR,URINE YELLOW; NITRITE,URINE NEGATIVE (NEG); PROTEIN,URINE 100 mg/dL (NEG-TRACE)
[2020-04-25 17:32] LABS: BACTERIA,URINE 0 /HPF (0-FEW)
--- NOTE | 2020-04-25 18:44 | RAD ---
Abdominal and Pelvis CT, Without Contrast: History: Reason: blood in stools, gen abd pain / Spl. Instructions: / History: Comparison: None. Procedure: Axial images are obtained of the abdomen and pelvis, without IV or oral contrast. Oral Contrast: No Findings: Evaluation of solid organs is limited without contrast. The stomach is distended with air and fluid. The colon is collapsed limiting its evaluation. There is diffuse colonic diverticulosis. The appendix is normal. The gallbladder appears normal. Liver: Normal. Spleen: Normal. Pancreas: Normal. Adrenal Glands: Normal. Kidneys: There is a horseshoe kidney with a few tiny nonobstructive stones in the renal pelvis and th ere is a 6 mm stone in the proximal left ureter however there is no hydronephrosis seen. There is no free air or free fluid. There is no lymphadenopathy. The urinary bladder appears normal. There is no pericolonic inflammation identified. Impression: 1. 6 mm stone proximal left ureter without hydronephrosis. 2. 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 3. Distention of the stomach with air and fluid. End impression PQRS Compliance Statement: One or more of the following individualized dose reduction techniques were utilized for this examinat ion: 1. Automated exposure control 2. Adjustment of the mA and/or kV according to patient size 3. Use of iterative reconstruction technique Electronically signed by: Paramjit Donnelly III, MD (04/25/2020 6:41 PM) [facility]
[2020-04-25] MEDS ORDERED: TAMS0.4C97 PO (19:35)
[2020-04-25] MEDS ORDERED: HYDR-2761 PO (19:35)
[2020-04-25] MEDS ORDERED: ONDA4TAB12 PO (19:35)
--- NOTE | 2020-04-25 19:39 | EKG ---
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
[2020-04-25 19:45] VITALS: BP 116/71
[2020-04-25] MEDS ORDERED: TAMSULOSIN 0.4 MG CAP.ER.24H. PO ONE (19:45)
--- NOTE | 2020-04-27 09:23 | NUR ---
IP: Informed pt of negative COVID results. Pt verbalized understanding.
== END 2020-04-25 20:12 | disposition home or self-care (01) ==
LOC: ER 14:43
DX: N20.0 Calculus of kidney (principal); Z20.822 Contact with and (suspected) exposure to COVID-19; E87.2 Acidosis; R11.2 Nausea with vomiting, unspecified; R06.00 Dyspnea, unspecified; R05 Cough; J45.909 Unspecified asthma, uncomplicated; E78.00 Pure hypercholesterolemia, unspecified; I10 Essential (primary) hypertension; N28.9 Disorder of kidney and ureter, unspecified; Z87.891 Personal history of nicotine dependence; Z98.890 Other specified postprocedural states; Z88.5 Allergy status to narcotic agent
CPT/HCPCS: 36415; 71045; 74176; 80053; 81001; 83605; 83690; 83880; 84484; 85025; 93005; 96361; 96374; 99285; C9803; J2405; J7030; U0003

== ENCOUNTER → 2020-05-12 | Outpatient (CLI) | payer MEDICARE ==
[2020-04-25 19:45] VITALS: BP 116/71
[~2020-05-12] MED LIST changes: +HYDR-2761 PO; +ONDA4TAB12 PO
--- NOTE | 2020-05-12 10:05 | RAD ---
EXAM: Abdomen, single view. HISTORY: Ureterolithiasis. COMPARISON: 04/25/2020 FINDINGS: A frontal view of the abdomen is obtained. There is a nonobstructive bowel gas pattern. The previously demonstrated nonobstructing stones within the left moiety of a horseshoe kidney and a pre viously demonstrated left ureteral stone are not seen radiographically. This may be obscured due to o verlying bowel and midline osseous structures. IMPRESSION: 1. No convincing radiographic evidence of nephroureterolithiasis. The recently demonstrated renal and left ureteral stones may be obscured due to midline structures in this patient with a known horsesho e kidney. 2. Nonobstructive bowel gas pattern. Electronically signed by: Ellie Calvin MD (05/12/2020 10:02 AM) [id number]
== END ==
LOC: RAD 09:26
PROVIDERS: ATTEND Urology
DX: N00.1 Acute nephritic syndrome with focal and segmental glomerular lesions (principal); N20.1 Calculus of ureter
CPT/HCPCS: 74018

== ENCOUNTER → 2021-05-09 | Outpatient (CLI) | payer MEDICARE ==
--- NOTE | 2021-05-09 11:39 | RAD ---
Examination: CT chest without contrast HISTORY: History of persistent cough COMPARISON: None available Technique: Axial CT images of chest were performed without contrast. Coronal and sagittal reformats a re performed Exposure: One or more of the following individualized dose reduction techniques were utilized for thi s examination: 1. Automated exposure control 2. Adjustment of the mA and/or kV according to patient size 3. Use of iterative reconstruction technique FINDINGS: The central airways are patent. Heart size grossly appears unremarkable. Coronary artery calcificatio ns identified. No radiologically significant mediastinal lymphadenopathy identified. The lungs are cl ear. The visualized noncontrasted liver, spleen, adrenals grossly appears unremarkable. The stomach i s mildly distended. Partially visualized horseshoe kidney identified. Multiple colon diverticulosis i dentified. Moderate degenerative changes thoracic spine. IMPRESSION: 1. The lungs are clear. 2. Coronary artery calcifications. 3. Partially visualized horseshoe kidney. Electronically signed by: Teto Asher MD (05/09/2021 11:36 AM) [id number]
== END ==
LOC: CT 11:03
PROVIDERS: ATTEND Internal Medicine Critical Care Medicine
DX: I25.10 Atherosclerotic heart disease of native coronary artery without angina pectoris (principal); K57.30 Diverticulosis of large intestine without perforation or abscess without bleeding; Q63.1 Lobulated, fused and horseshoe kidney; M47.814 Spondylosis without myelopathy or radiculopathy, thoracic region
CPT/HCPCS: 71250